=== PATIENT | female | born 1995 | race Caucasian/White ===

== ENCOUNTER 2016-05-25 12:13 | Emergency (ER) | payer OTHER | END 2016-05-25 16:30 | disposition home or self-care (01) | LOC: ER 12:13 | DX: S20.219A Contusion of unspecified front wall of thorax, initial encounter (principal); N39.0 Urinary tract infection, site not specified; J45.909 Unspecified asthma, uncomplicated; F17.210 Nicotine dependence, cigarettes, uncomplicated; Z88.0 Allergy status to penicillin; Z88.1 Allergy status to other antibiotic agents; V49.60XA Unspecified car occupant injured in collision with unspecified motor vehicles in traffic accident, initial encounter | CPT/HCPCS: Q9967 ==